=== PATIENT | male | born 1965 | race Caucasian/White ===

== ENCOUNTER 2016-12-24 15:41 | Emergency (ER) | payer BC, OTHER ==
[~2016-12-24] VITALS: Ht 160 cm; Wt 78.0 kg
[~2016-12-24 15:41] MED LIST: ACET500C5 PO; CYCL-319 PO; HYDR-3498 PO; IBUP-1542 PO
[2016-12-24 15:43] VITALS: Ht 160 cm; Wt 78.0 kg
[2016-12-24] MEDS ORDERED: SOD CHLORIDE 0.9% 1,000 ML IV ONE (18:30)
[2016-12-24] MEDS ORDERED: KETOROLAC 15 MG INJ IM STA (18:34)
--- NOTE | 2016-12-24 18:39 | ERD ---
ER Documentation Chief Complaint Date/Time DATE: 12/24/16 TIME: 18:35 Chief Complaint eaton x 3days HPI 51-year-old male patient presents to emergency department with complaint of headache on and off x 3 days, located occipital scalp, denies n/v, change in vision or blurred vision denies n/v reports dizziness denies history of cardiovascular disease, chest pain, shortness of breath, or palpitations. Patient has history of migraines usually controlled with [id number] Tylenol. Patient reports he has taken Tylenol with little relief of symptoms. Patient reports dizziness described as subjective. Feels like he is spinning. Denies any otalgia, change in hearing, or sinus symptoms. Denies any recent colds or allergy symptoms. ROS All systems reviewed and are negative except as per history of present illness. Medications Home Meds Active Scripts Meclizine Hcl* (Antivert*) 12.5 Mg Tab, 25 MG PO Q6H Y for DIZZINESS, #20 TAB Prov:DEYANIRA,BIPIN 12/24/16 Ibuprofen* (Motrin*) 400 Mg Tab, 400 MG PO Q6, #30 TAB Prov:DEYANIRA,BIPIN 12/24/16 Cyclobenzaprine Hcl* (Cyclobenzaprine Hcl*) 10 Mg Tablet, 10 MG PO TID, #15 TAB Prov:VALORIE GALINDO RAYON TESTER 11/01/15 Ibuprofen* (Motrin*) 600 Mg Tab, 600 MG PO Q6H Y for PAIN AND OR ELEVATED TEMP, #30 TAB Prov:VALORIE GALINDO NP 11/01/15 Hydrocodone Bit-Acetaminophen* ([place]*) 5-325 Mg Tab, 1 TAB PO Q6 Y for PAIN, # 20 TAB Prov:VALORIE GALINDO NP 11/01/15 Reported Medications Acetaminophen* (Tylophen*) Unknown Strength Capsule, PO Q8H Y for PAIN AND OR ELEVATED TEMP, #20 CAP 11/01/15 Allergies Allergies: Coded Allergies: No Known Allergy (Unverified , 11/01/15) PMhx/Soc History of Surgery: No Anesthesia Reaction: No Hx Neurological Disorder: No Hx Respiratory Disorders: No Hx Cardiac Disorders: No Hx Psychiatric Problems: No Hx Miscellaneous Medical Probl: No Hx Alcohol Use: No Hx Substance Use: No Hx Tobacco Use: No Smoking Status: Never smoker Physical Exam Vitals Stable, triage notes reviewed Physical Exam Const: Nourished well-appearing well-hydrated no acute distress Head: Atraumatic Eyes: Normal Conjunctiva ENT: Lateral tympanic membranes retracted, auditory canals are clear, nasal mucosa moist turbinates +1 no maxillary or frontal sinus tenderness, pharynx is pink uvula midline rises and falls with patient Neck: Full range of motion..~ No meningismus. Resp: Clear to auscultation bilaterally no rales wheezes or rhonchi Cardio: Regular rate and rhythm, no murmurs Abd: Soft, non tender, non distended. Normal bowel sounds S1-S2-no S3 S Skin: Back: Ext: No cyanosis, or edema Neur: Neuro: M/S: Alert and oriented Face: EOMI, face and pharynx with normal sensation and function Motor: Normal strength throughout Sensation: Normal sensation throughout Speech: Normal Cerebel: Romberg positive Normal gait Normal finger to nose DTR: 2+ and symmetric upper/lower extremities Has a symmetrical smile, hand medicaid service coordinator are bilaterally equal, without pronator drift Psych: Normal Mood and Affect Results 24 hrs Current Medications Medications (Trade) Dose Ordered Sig/Jeff Route PRN Reason Start Time Stop Time Status Last Admin Dose Admin Sodium Chloride (NS) 1,000 ml @ 1,000 mls/hr Q1H ONCE IV 12/24/16 18:30 12/24/16 18:36 DC Ketorolac Tromethamine (Toradol) 15 mg ONCE STAT IM 12/24/16 18:34 12/24/16 18:37 DC 12/24/16 18:57 Meclizine HCl (Antivert) 25 mg ONCE ONCE PO 12/24/16 19:00 12/24/16 19:01 DC 12/24/16 18:56 Procedures/MDM This 51-year-old male patient presents to emergency department for headache, and dizziness. Patient reports symptoms intermittently times the last 3 days, denies any chest pain shortness of breath or palpitations denies any cardiovascular history of low suspicion for acute coronary syndromes, acute MT, aortic aneurysm or pulmonary embolism. She did not is neurovascularly intact, low suspicion for CVA, TIA, or intracranial bleed or tumor. Patient headache is treated with Toradol, liter of normal saline, and meclizine given for dizziness. Patient reassessed after 90 minutes with improvement of symptoms. Patient is able to tolerate liquids walk stably without alteration lightheadedness or sensation spinning. Patient is stable with no new complaints during ER course, clinically there is no current evidence to suggest meningitis, sepsis, acute abdomen, or any other emergent condition appearing to require further evaluation or hospitalization. I feel the patient is stable for discharge at this time. I have discussed results, examination findings, the treatment plan with the patient and family present prior to discharge. Indications for emergent reevaluation, side effects of medication were also discussed. All questions were answered. Patient verbalizes understanding and agrees with plan of care. Departure Diagnosis: Primary Impression: Headache Headache type: unspecified Headache chronicity pattern: unspecified pattern Intractability: not intractable Qualified Code: R51 - Nonintractable headache, unspecified chronicity pattern, unspecified headache type Additional Impression: Dizziness Condition: Good Patient Instructions: Dizziness (Vertigo) and Balance Problems: Ensuring Your Safety, Self-Care for Headaches Additional Instructions: Thank you for for coming to [facility] for your care today. Please ask your nurse or provider if you have questions about your care today and do not leave until all your questions have been answered. Please use any medications given as directed and follow-up with your doctor (or the doctor you were referred to) in the next 2-3 days. If you do not have a primary care doctor you may follow up at the [facility] (listed below). You may also use motrin and tylenol as needed for fever and/or pain unless instructed otherwise by your provider or nurse. Indications for more urgent follow-up have been discussed, but you may return to the Emergency Department at ANY time for any worrisome or worsening symptoms. If you have abdominal pain, please know that no test or exam you received is perfect and you should follow up within 8 hours for continued pain. If you had any imaging studies today, such as an X-Ray or CT Scan, these studies will be reviewed later by a radiologist. You will be called if there are important findings that were not identified today, so make sure the contact information you provided at registration is correct. If you received any narcotic pain control medicine today, such as Vicodin, Morphine or Dilaudid, your coordination and judgment may be affected for a number of hours. Please do not drive or operate heavy machinery, and you may want someone to assist you at home. If you were given a prescription for narcotic medication, be aware that it is very addictive- use sparingly and only if necessary. BIPIN MCMILLAN Dec 24, 2016 18:39 BIPIN MCMILLAN Dec 24, 2016 18:39
[2016-12-24] MEDS ORDERED: MECLIZINE 12.5 MG TAB PO ONE (19:00)
[2016-12-24] MEDS ORDERED: IBUP400T22 PO (20:22)
[2016-12-24] MEDS ORDERED: MECL12.574 PO (20:23)
[2016-12-24 20:28] VITALS: BP 114/78; PULSE 56; RESP 16
== END 2016-12-24 20:30 | disposition home or self-care (01) ==
LOC: FTE 15:41
DX: R51 Headache (principal); R42 Dizziness and giddiness
CPT/HCPCS: 96372; J1885; Z7502; Z7610; J7030

== ENCOUNTER 2018-09-01 14:40 | Emergency (ER) | payer BC ==
[~2018-09-01] VITALS: Wt 95.2 kg
[~2018-09-01 14:40] MED LIST changes: -CYCL-319 PO; +CYCL10TA7 PO; +IBUP-1561 PO; +MECL12.574 PO
[2018-09-01 14:43] VITALS: BP 121/79; PULSE 69; RESP 18
[2018-09-01] MEDS ORDERED: PRED20TA PO (18:09)
--- NOTE | 2018-09-01 18:11 | ERD ---
ER Documentation Chief Complaint Chief Complaint DARIO TINNITUS X 2 WEEKS HPI 54-year-old male presents with mild bitemporal headache and bilateral ringing the ears for 2 weeks. 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 Denies any recent URIs, bleeding, discharge, vomiting, chest pain, shortness of breath or additional symptoms. ROS All systems reviewed and are negative except as per history of present illness. Medications Home Meds Active Scripts Prednisone* (Prednisone*) 20 Mg Tab, 40 MG PO DAILY for 5 Days, TAB Prov:OSWALDO KRUEGER MD 09/01/18 Meclizine Hcl* (Antivert*) 12.5 Mg Tab, 25 MG PO Q6H PRN for DIZZINESS, #20 TAB Prov:DEYANIRA,BIPIN 12/24/16 Ibuprofen* (Motrin*) 400 Mg Tab, 400 MG PO Q6, #30 TAB Prov:DEYANIRA,BIPIN 12/24/16 Cyclobenzaprine Hcl* (Cyclobenzaprine Hcl*) 10 Mg Tablet, 10 MG PO TID, #15 TAB Prov:VALORIE GALINDO NP 11/01/15 Ibuprofen* (Motrin*) 600 Mg Tab, 600 MG PO Q6H PRN for PAIN AND OR ELEVATED TEMP, #30 TAB Prov:VALORIE GALINDO NP 11/01/15 Hydrocodone Bit-Acetaminophen* ([place]*) 5-325 Mg Tab, 1 TAB PO Q6 PRN for PAIN, #20 TAB Prov:VALORIE GALINDO NP 11/01/15 Reported Medications Acetaminophen* (Tylophen*) Unknown Strength Capsule, PO Q8H PRN for PAIN AND OR ELEVATED TEMP, #20 CAP 11/01/15 Allergies Allergies: Coded Allergies: No Known Allergy (Unverified , 11/01/15) PMhx/Soc Medical and Surgical Hx: pt denies Medical Hx, pt denies Surgical Hx History of Surgery: No Anesthesia Reaction: No Hx Neurological Disorder: No Hx Respiratory Disorders: No Hx Cardiac Disorders: No Hx Psychiatric Problems: No Hx Miscellaneous Medical Probl: No Hx Alcohol Use: No Hx Substance Use: No Hx Tobacco Use: No FmHx Family History: No diabetes, No coronary disease, No other Physical Exam Vitals Vital Signs Date Temp Pulse Resp B/P (MAP) Pulse Ox O2 O2 Flow FiO2 Time Delivery Rate 09/01/18 99.0 69 18 121/79 99 14:43 (93) Physical Exam Const: No acute distress Head: Atraumatic Eyes: Normal Conjunctiva ENT: Normal External Ears, Nose and Mouth. TMs normal. Neck: Full range of motion. No meningismus. Resp: Clear to auscultation bilaterally Cardio: Regular rate and rhythm, no murmurs Abd: Soft, non tender, non distended. Normal bowel sounds Skin: No petechiae or rashes Back: No midline or flank tenderness Ext: No cyanosis, or edema Neur: Awake and alert Psych: Normal Mood and Affect Results 24 hrs Laboratory Tests Test 09/01/18 15:57 Bedside Glucose 98 mg/dL Procedures/MDM CT brain shows no acute abnormalities. Temporal bone shows no acute abnormalities. EKG: Rate/Rhythm: Normal Sinus Rhythm. Rate equals 60 QRS, ST, T-waves: No changes consistent w/ acute ischemia Impression: No evidence of ischemia or arrhythmia She presents with tenderness for the last 2 weeks bilaterally. He has no signs of intracranial bleeding, mass-effect, neurologic deficit. He has no symptoms to suggest cardiac chest pain, additional concerning abnormalities. Accu-Chek is normal. We discharged home with ENT evaluation recommendations, return precautions and primary care follow-up. The patient was stable with no new complaints during the ER course. Clinically, there is no current evidence to suggest meningitis, sepsis, acute abdomen, pneumonia, stroke, acute coronary syndrome, pulmonary embolism, aortic dissection or any other emergent condition appearing to require further evaluation or hospitalization. Patient counseled regarding my diagnostic impression and care plan. Prior to discharge all questions answered. Pt agrees with treatment plan and understands strict return precautions. Pt is instructed to follow up with primary care provider within 24- 48 hours. Precautionary instructions provided including instructions to return to the ER if not improving or for any worsening or changing symptoms or concerns. Disclaimer: Inadvertent spelling and grammatical errors are likely due to EHR/dictation software use and do not reflect on the overall quality of patient care. Also, please note that the electronic time recorded on this note does not necessarily reflect the actual time of the patient encounter. Departure Diagnosis: Primary Impression: Tinnitus Laterality: bilateral Qualified Codes: H93.13 - Tinnitus, bilateral Additional Impression: Ear problem Laterality: bilateral Qualified Codes: H93.93 - Unspecified disorder of ear, bilateral Condition: Stable Patient Instructions: Tinnitus (Ringing in the Ears) Referrals: PANCHITO MILLARD MD, STEPHEN H MD Additional Instructions: Examinations normal today. See an ENT specialist for further evaluation of ringing in the ears. Recheck otherwise for fevers, worsening symptoms. OSWALDO KRUEGER MD September 01, 2018 18:11
--- NOTE | 2018-09-04 14:49 | RADRPT ---
Vent Rate: 60 bpm RR Interval: 0 msec [place] Interval: 170 msec QRS Duration: 90 msec QT Interval: 398 msec QTC Interval: 398 msec P-R-T [place]: 54 - -20 - 21 degrees Normal sinus rhythm Cannot rule out Anterior infarct , age undetermined Abnormal ECG Electronically Signed By: [facility]
== END 2018-09-01 18:20 | disposition home or self-care (01) ==
LOC: FTE 14:40
DX: H93.13 Tinnitus, bilateral (principal); H93.93 Unspecified disorder of ear, bilateral
CPT/HCPCS: 70450; 70480; 82962; 93005; Z7502